=== PATIENT | female | born 1940 | race Caucasian/White ===

== ENCOUNTER 2016-06-29 14:21 | Inpatient (IN) | payer MEDICARE, OTHER ==
--- NOTE | ~2016-06-29 | CN ---
Consultation Report [place] [id number] [place]. [address] NAME: ERICK CAMPOS : [birth year] STATUS : ADM IN [facility]#: [id number] AGE: 75 ADM/REG DATE : 06/29/16 MR#: [id number] REPORT SERV DATE: 06/30/16 DICTATED BY: ROB PARKER DATE: 06/30/16 REPORT STATUS : Draft TRANSCRIBED BY: MODL DATE: 06/30/16 GI CONSULTATION DATE OF CONSULTATION: 06/30/2016 HISTORY OF PRESENT ILLNESS: The patient is a 75-year-old white female, on whom we are consulted for GI bleed. The patient has seen Dr. Fink in the past for question irritable bowel syndrome versus colitis, has had been many years since she had a colonoscopy. The patient had sudden onset yesterday of severe cramping, diffusely in the abdomen more so in the left lower quadrant, and then hematochezia. She has noticed a change recently in her bowel habits. She previously had a history of chronic diarrhea, for which she took Imodium, but has been noticing change in her bowel habits with more constipation over the last several months to years. PAST MEDICAL HISTORY: 1. Irritable bowel syndrome with diarrhea, question colitis. 2. Gastroparesis. 3. History of hypertension. 4. Depression. 5. Hypothyroidism. MEDICATIONS: Reviewed. Of note, she does take Remeron and evidently omeprazole. ALLERGIES: SULFA. REVIEW OF SYSTEMS: The patient denies any fever, chills. She did have nausea on one occasion. PHYSICAL EXAMINATION: GENERAL: The patient is a pleasant white female, in no acute distress. LUNGS: Clear. CARDIOVASCULAR: Regular rhythm. ABDOMEN: Soft. There is mild tenderness in the left lower quadrant. No peritoneal signs appreciated. LABORATORY DATA: Shows CBC on admission with a white count of 18,600, hemoglobin 14.9, and hematocrit 42.7. Normal liver enzymes. CT scan showed thickening of the left side of her colon from the transverse to descending with inflammation. She does have sigmoid diverticulosis. ASSESSMENT: 1. The patient with hematochezia and abdominal pain, suspect ischemic colitis as a cause of this, less likely to be an inflammatory bowel disease. With her recent change in Consultation Report [place] [address] [place]. [address] NAME: ERICK CAMPOS : 39 STATUS : ADM IN PAT#: [id number] AGE: 75 ADM/REG DATE : 06/29/16 MR#: [id number] REPORT SERV DATE: 06/30/16 DICTATED BY: ROB PARKER DATE: 06/30/16 REPORT STATUS : Draft TRANSCRIBED BY: MODL DATE: 06/30/16 bowel habits, certainly need to exclude any sort of colonic neoplasm. 2. History of irritable bowel syndrome and gastroparesis. 3. Other medical problems as above. RECOMMENDATIONS: 1. Continue IV antibiotics. 2. Ultrasound of mesenteric vessels is pending. 3. We will schedule the patient for colonoscopy in the morning. ALBINO/CHARLES Rob Parker M.D. / [id number] CC: Nieves Mckinnon M.D.
--- NOTE | ~2016-06-29 | EGD ---
EGD REPORT [facility] [address] [address] NAME: PUSHPA CAMPOS : [birth year] STATUS : ADM IN PAT#: [id number] AGE: 75 ADM/REG DATE : 06/29/16 MR#: [id number] REPORT SERV DATE: 07/01/16 DICTATED BY: ALLI VALDEZ DATE: 07/01/16 REPORT STATUS : Draft TRANSCRIBED BY: [facility] DATE: 07/01/16 Endoscopy Center Patient Name: Pushpa Campos Date of : 1940 Attending MD: ALLI VALDEZ MD Procedure Date No Time: 07/01/2016 Procedure: Colonoscopy Indications: Hematochezia Referring MD: CHARISMA PANDEY Medicines: Monitored Anesthesia Care Complications: No immediate complications. Estimated blood loss: Minimal. Procedure: Pre-Anesthesia Assessment: - ASA Grade Assessment: II - A patient with mild systemic disease. After I obtained informed consent, the scope was passed under direct vision. Throughout the procedure, the patient's blood pressure, pulse, and oxygen saturations were monitored continuously. The CF [id number] was introduced through the anus with the intention of advancing to the ileum. The scope was advanced to the sigmoid colon before the procedure was aborted. Medications were given. The colonoscopy was performed without difficulty. The patient tolerated the procedure well. The quality of the bowel preparation was good. Findings: The perianal and digital rectal examinations were normal. Pertinent negatives include normal sphincter tone and no palpable rectal lesions. Diffuse severe inflammation characterized by congestion (edema), erythema and confluent ulcerations was found in the sigmoid colon. Biopsies were taken with a cold forceps for histology. Estimated blood loss was minimal. The exam was otherwise without abnormality on direct and retroflexion views. Impression: - Diffuse severe inflammation was found in the sigmoid colon, rule out inflammatory bowel disease. Biopsied. - Examination stopped at sigmoid colon due to severity of inflammation. - The examination was otherwise normal on direct and retroflexion views. Recommendation: - Return patient to hospital amor for ongoing care. - Await pathology results. EGD REPORT [facility] [address] [address] NAME: PUSHPA CAMPOS : [birth year] STATUS : ADM IN [facility]#: [id number] AGE: 75 ADM/REG DATE : 06/29/16 MR#: [id number] REPORT SERV DATE: 07/01/16 DICTATED BY: ALLI VALDEZ DATE: 07/01/16 REPORT STATUS : Draft TRANSCRIBED BY: IOCS DATE: 07/01/16 - Clear liquid diet. - Follow up with GI (Danae) after discharge Procedure Code(s): --- Professional --- 08455, 52, Colonoscopy, flexible, proximal to splenic flexure; with biopsy, single or multiple Diagnosis Code(s): --- Professional --- K52.9, Noninfective gastroenteritis and colitis, unspecified K92.1, Melena CPT copyright 2013 [employer] [place] [employer]. All rights reserved. The codes documented in this report are preliminary and upon form worker review may be revised to meet current compliance requirements. Alli Valdez MD ALLI VALDEZ MD 07/01/2016 7:59 AM This report has been signed electronically. Number of Addenda: 0 Note Initiated On: 07/01/2016 7:12 AM Scope Withdrawal Time 0 hours 0 minutes 0 seconds [address] [address]
--- NOTE | ~2016-06-29 | DS ---
Discharge Summary [facility] [address] [place]. [address] NAME: PUSHPA CAMPOS : 39 STATUS : DIS IN PAT#: [id number] AGE: 75 ADM/REG DATE : 06/29/16 MR#: [id number] REPORT SERV DATE: 07/03/16 DICTATED BY: CONSTANTIN CUTLER DATE: 07/02/16 REPORT STATUS : Draft TRANSCRIBED BY: MODL DATE: 07/02/16 ADMISSION DATE: 06/29/2016 DISCHARGE DATE: 07/02/2016 CONDITION ON DISCHARGE: Stable. DISPOSITION: Discharged to home. DIAGNOSES ON DISCHARGE: 1. Acute diffuse colitis, ischemic versus infectious in origin, however, less likely ischemic because the patient had mesenteric ultrasound that showed no stenosis of either superior mesenteric artery or inferior mesenteric artery; hence, this could be either nonspecific colitis versus infectious colitis. 2. Rectal bleed - resolved. 3. History of irritable bowel syndrome, stable. 4. History of gastroparesis, stable. 5. Hypertension - stable. 6. Hypothyroidism - stable. 7. Depression, stable with medications. CONSULTATIONS OBTAINED DURING HOSPITALIZATION: Include GI consultation by Dr. Rob Valenzuela. BRIEF HOSPITAL COURSE: Ms Pushpa Campos is a 75-year-old female patient who was admitted with signs and symptoms as outlined in history and physical exam. Essentially, she came in with crampy abdominal pain and multiple bouts of loose stool mixed with blood. CT scan showed diffuse colitis, and hence, the patient was admitted for IV antibiotics and symptomatic relief. The patient was kept on clear liquids only and then diet was advanced slowly. The patient improved with antibiotics. Her crampy abdominal pain completely resolved. She is ambulating. She has had bowel movements with no bleeding in it. She is tolerating p.o. solids, and hence, she is being discharged home in stable condition with followup with PCP in the next one to two weeks and GI within the next three to four weeks. The antibiotics that she will be sent home on include the following: Levofloxacin 500 mg once a day for seven more days and Flagyl 500 mg p.o. t.i.d. for seven more days. The patient already has a probiotic capsules that she takes at home. Her home medications that will be stopped include lisinopril/HCT at this time. This is because her blood pressures have been running normal while in the hospital and also in addition to that, her acute kidney injury when she came in with, her creatinine was 1.5. This has resolved now and creatinine is down to 1. Hence, I have advised her to get her blood pressure checked in the next one to two weeks with her primary care physician, and then make decision as to whether to resume the blood pressure pill lisinopril/HCT at this time. The patient also will resume aspirin in only a week from now. Other than that, she will resume the rest of her medications that include levothyroxine 50 mcg once a day, Remeron 45 mg once a day, zolpidem 5 mg p.o. at bedtime, Zofran 4 mg p.o. t.i.d. p.r.n., tramadol 50 mg p.o. once a day p.r.n., and other vitamins and minerals like niacin, probiotics, and multivitamins. The patient will also resume Zyrtec 10 mg once a day. The most recent labs I have on this patient Discharge Summary [address] [address] NAME: PUSHPA CAMPOS : 38 STATUS : DIS IN PAT#: [id number] AGE: 75 ADM/REG DATE : 06/29/16 MR#: [id number] REPORT SERV DATE: 07/03/16 DICTATED BY: CONSTANTIN CUTLER DATE: 07/02/16 REPORT STATUS : Draft TRANSCRIBED BY: MODL DATE: 07/02/16 include a CBC that is completely normal with hemoglobin of 11 and hematocrit of 32.6. WBC count is 8.7. Electrolyte profile is completely normal and her BUN is 5 and creatinine is 1.01 today. Hence, the patient is being discharged home in stable condition and I have spent about 40 to 45 minutes in coordinating discharge care of this patient including face- to-face encounter, advice, and also summarizing this discharge. THOM/CHARLES Constantin Cutler M.D. / [id number] CC: Ian Agee SUSAN R.
--- NOTE | ~2016-06-29 | HP ---
History And Physical [place] [id number] [place]. [address] NAME: ERICK CAMPOS : 38 STATUS : ADM IN [facility]#: [id number] AGE: 75 ADM/REG DATE : 06/29/16 MR#: [id number] REPORT SERV DATE: 06/29/16 DICTATED BY: CONSTANTIN CUTLER DATE: 06/29/16 REPORT STATUS : Draft TRANSCRIBED BY: MODL DATE: 06/29/16 DATE OF ADMISSION: 06/29/2016 Mrs. Campos is a 75-year-old female patient, who came into the ER this morning because she noticed that she had bright red blood that she was passing in her stool last night. The patient states that all her symptoms began yesterday, and she may have had at least two or three bouts of bowel movements with linda blood in it. The patient also states that she had nausea and vomiting one time yesterday. She states that she just threw up the food that she had eaten, and there was no blood in the vomitus. The patient said that she was so scared that she had passed blood in the stool that she wanted to come to the ER yesterday itself, but she postponed it until today, and she came now. The patient also describes crampy abdominal pain every time she had a bowel movement with the blood in it. HISTORY OF PRESENTING COMPLAINT: The patient states that she has had colon problems for several years, and she has been diagnosed with irritable bowel syndrome and just a sensitive colon for several years now. 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 But the patient states that she has never had bleeding in her bowel movements like the way she did yesterday. REVIEW OF SYSTEMS: Negative for headaches, blurry vision, trouble swallowing, chest pain, shortness of breath, fever, dysuria, or hematuria. Negative for joint pains. PAST MEDICAL HISTORY: Significant for hypertension, hypothyroidism, depression, insomnia, "irritable colon." SOCIAL HISTORY: The patient does not smoke or drink any alcohol. She denies any illegal drug use. The patient is and lives alone and her children live out of town. FAMILY HISTORY: Positive for nephritis in father. Other than that, there are no colon problems that run in the family according to the patient. ALLERGIES: INCLUDE ALLERGY TO SULFA. HOME MEDICATIONS: Include levothyroxine 50 mcg once a day, lisinopril/HCT one tablet once a day, tramadol 50 mg p.o. daily p.r.n., Remeron 45 mg p.o. at bedtime, Ambien 5 mg p.o. at bedtime, niacin one tablet every day, aspirin 81 mg once a day, probiotic one capsule once a day, multivitamins one tablet once a day, cetirizine 10 mg once a day, and Zofran 4 mg p.o. t.i.d. p.r.n. for nausea. PHYSICAL EXAMINATION: GENERAL: On examination, the patient is alert, oriented, and able to give her history herself. Skin and mucous membranes appear moist. VITAL SIGNS: Show that blood pressure is 111/56, temperature is afebrile, pulse is 103 per minute, respirations 16 per minute, the O2 saturations 98% on room air. History And Physical [address] [address] NAME: ERICK CAMPOS : 38 STATUS : ADM IN [facility]#: [id number] AGE: 75 ADM/REG DATE : 06/29/16 MR#: [id number] REPORT SERV DATE: 06/29/16 DICTATED BY: CONSTANTIN CUTLER DATE: 06/29/16 REPORT STATUS : Draft TRANSCRIBED BY: CHARLES DATE: 06/29/16 HEENT: Unremarkable. There is no facial droop or facial asymmetry. NECK: There is no JVD or thyromegaly. CARDIOVASCULAR SYSTEM: S1, S2 appreciated. Sinus rhythm. No murmurs, rubs, or gallops noted. Tachycardia noted. RESPIRATORY SYSTEM: Clear lungs. No rales or rhonchi noted. ABDOMEN: Soft. There is mild diffuse tenderness, but no guarding or rigidity noted in the belly area. Bowel sounds are appreciated. No organomegaly or hepatosplenomegaly noted. EXTREMITIES: There is no edema. Pedal pulses are well felt. NEUROLOGICAL EXAM: Normal. MUSCULOSKELETAL: Normal. PSYCHIATRIC EXAM: Positive for depression for which she takes medications and controlled well with it. LABORATORY DATA: The labs that I have on this patient include WBC count of 18.6, hemoglobin 14.9, hematocrit 42.7, platelet count of 372. INR is 0.9. CMP shows normal electrolytes, BUN 13, creatinine 1.5. Normal LFTs. CT scan of the abdomen and pelvis shows that the patient has: 1. Diffuse thickening of the wall of the left side of the transverse colon and descending colon consistent with inflammation of the adjacent mesentery. Findings consistent with an infectious/inflammatory colitis. There is no bowel obstruction. The patient does have multiple sigmoid diverticula. ASSESSMENT: Acute colitis, infectious most likely. It could be ischemic colitis too. However, probably more inflammatory/infectious in origin, given the tachycardia, increased WBC count, this classifies the patient under sepsis too. We will admit the patient for this and start her on IV fluids and intravenous antibiotics namely Levaquin and Flagyl. We will also go ahead and keep the patient only on clear liquids for now before advancing her to full liquids and then maybe solids in the later day or two. We will obtain GI consult from Dr. Turner. Rest of her medical problems also include leukocytosis probably secondary to colitis. Acute kidney injury probably secondary to mild dehydration, which should be corrected with IV LR that I am starting on her. Her other chronic medical problems remained stable, and I will keep her on her home medications including her thyroid medication, medication for insomnia and depression. However, we will hold aspirin given the history of gastrointestinal bleed. Also, we will go ahead and hold her blood pressure medicine given the acute kidney injury. We will follow the patient. THOM/CHARLES History And Physical [address] [address] NAME: ERICK CAMPOS : 39 STATUS : ADM IN PAT#: [id number] AGE: 75 ADM/REG DATE : 06/29/16 MR#: [id number] REPORT SERV DATE: 06/29/16 DICTATED BY: CONSTANTIN CUTLER DATE: 06/29/16 REPORT STATUS : Draft TRANSCRIBED BY: CHARLES DATE: 06/29/16 Constantin Cutler M.D. / [id number] CC: Ian Agee
[2016-06-29 11:15] LABS: BASOPHILS 0.2 %; BASOPHILS ABSOLUTE 0.04 10/3/uL (0.0-0.16); EOSINOPHILS 0.1 %; EOSINOPHILS ABSOLUTE 0.01 10/3/uL (0.0-0.53); HEMATOCRIT 42.7 % (36.0-48.0); HEMOGLOBIN 14.9 g/dL (12.0-16.0); IMMATURE GRANULOCYTES 0.4 %; IMMATURE GRANULOCYTES ABSOLUTE 0.07 10/3/uL (0.0-0.11); LYMPHOCYTES 7.3 %; LYMPHOCYTES ABSOLUTE 1.35 10/3/uL (0.67-4.30); MEAN CORPUS HGB CONC 34.9 g/dL (32.0-36.0); MEAN CORPUSCULAR HEMOGLOB 30.8 pg (26.0-34.0); MEAN CORPUSCULAR VOLUME 88.4 fL (80-100); MEAN PLATELET VOLUME 11.1 fL (9.2-13.0); MONOCYTES 4.2 %; MONOCYTES ABSOLUTE 0.79 10/3/uL (0.21-1.20); NEUTROPHILS 87.8 %; NEUTROPHILS ABSOLUTE 16.36 10/3/uL (2.02-8.40); PLATELET COUNT 372 10/3/uL (150-400); RBC DISTRIBUTION WIDTH 13.5 % (12.0-16.0); RED CELL COUNT 4.83 10/6/uL (4.0-5.6)
[2016-06-29 11:16] LABS: MANUAL DIFF NO %; WHITE BLOOD CELLS 18.6 10/3/uL (4.5-10.5)
[2016-06-29 11:22] LABS: INTERNATIONAL NORMAL RATI 0.9 UNITS (-); PARTIAL THROMBO TIME 23.7 SEC (22.5-37.2); PROTIME (NOT ORD) 12.3 SEC (12.0-14.5)
[2016-06-29 11:29] LABS: ALBUMIN 3.9 G/DL (3.5-5.0); BUN (BLOOD UREA NITROGEN) 13 MG/DL (6-23); CALCIUM, SERUM 9.2 MG/DL (8.5-10.4); CHLORIDE, SERUM 99 MMOL/L (96-112); CO2 (CARBON DIOXIDE) 29 MMOL/L (24-34); CREATININE 1.53 MG/DL (0.55-1.02); GFR AFRICAN AMERICAN 38 ML/MIN (>=60); GFR NON AFRICAN AMERICAN 33 ML/MIN (>=60); SGOT(AST) 15 U/L (5-40); SGPT(ALT) 18 U/L (5-65); SODIUM, SERUM 140 MMOL/L (135-148); TOTAL PROTEIN 7.4 G/DL (6.0-8.5)
[2016-06-29 11:30] LABS: A/G RATIO 1.1 (0.7-1.9); ALKALINE PHOSPHATASE 103 U/L (45-117); GLOBULIN 3.5 G/DL (2.5-4.1); GLUCOSE, SERUM 145 MG/DL (60-99); TOTAL BILIRUBIN 0.9 MG/DL (0-1.2)
[~2016-06-29 14:21] MED LIST: ACET500CAP PO; ASAB PO; ATIVAN2 MG PO; BENTYL10 PO; BIOCELL COLLAGEN PO; FLUCON150 PO; LEVOTHROID75 MCG PO; LEVOTHYROXIN50 MCG PO; MULTIPLE VIT PO; PRILO PO; PROBIOTIC PO; SLO-NIACIN500 MG PO; ULTRAM50 PO; ZANTAC 150 PO; ZESTORETIC PO
[2016-06-29] MEDS ORDERED: ZOFRAN4 PO (16:27)
[2016-06-29] MEDS ORDERED: ZESTORETIC PO (16:33)
[2016-06-29] MEDS ORDERED: SYN.05 PO (16:33)
[2016-06-29] MEDS ORDERED: AMB5 PO ×2 (16:34→16:35)
[2016-06-29] MEDS ORDERED: REMERON45 MG PO (16:34)
[2016-06-29] MEDS ORDERED: ULTRAM50 PO (16:34)
[2016-06-29] MEDS ORDERED: NIACIN PO (16:35)
[2016-06-29] MEDS ORDERED: PROBIOTIC PO (16:35)
[2016-06-29] MEDS ORDERED: ASAB PO (16:35)
[2016-06-29] MEDS ORDERED: MULTIVIT/MIN PO (16:36)
[2016-06-29] MEDS ORDERED: ZYRTEC ALLGY10 MG PO (16:37)
[2016-06-29] MEDS ORDERED: REFRES1 (16:37)
[2016-06-29 17:44] LABS: WBC (NOT ORDERED) (RFLEX) 0 (0-5)
[2016-06-29 17:54] LABS: ASCORBIC ACID (UR NOT ORDER) 40 (NEG); BILIRUBIN, URINE NEGATIVE (NEG); KETONE, URINE TRACE MG/DL (NEG); LEUKOCYTE ESTERASE(NOT OR NEG (NEG)
[2016-06-29 19:42] LABS: PROCALCITONIN <0.05 ng/mL (<0.5)
[2016-06-30 06:36] LABS: BASOPHILS 0.1 %; BASOPHILS ABSOLUTE 0.02 10/3/uL (0.0-0.16); EOSINOPHILS 0.7 %; HEMOGLOBIN 12.9 g/dL (12.0-16.0); IMMATURE GRANULOCYTES 0.3 %; IMMATURE GRANULOCYTES ABSOLUTE 0.04 10/3/uL (0.0-0.11); LYMPHOCYTES 11.4 %; MEAN CORPUS HGB CONC 34.8 g/dL (32.0-36.0); MEAN CORPUSCULAR HEMOGLOB 30.3 pg (26.0-34.0); MEAN CORPUSCULAR VOLUME 87.1 fL (80-100); MEAN PLATELET VOLUME 11.1 fL (9.2-13.0); MONOCYTES 7.3 %; MONOCYTES ABSOLUTE 1.09 10/3/uL (0.21-1.20); NEUTROPHILS 80.2 %; PLATELET COUNT 295 10/3/uL (150-400); RBC DISTRIBUTION WIDTH 13.6 % (12.0-16.0); RED CELL COUNT 4.26 10/6/uL (4.0-5.6); WHITE BLOOD CELLS 14.9 10/3/uL (4.5-10.5)
[2016-06-30 06:37] LABS: CALCIUM, SERUM 8.5 MG/DL (8.5-10.4); CHLORIDE, SERUM 102 MMOL/L (96-112); CO2 (CARBON DIOXIDE) 27 MMOL/L (24-34); HEMATOCRIT 37.1 % (36.0-48.0); MANUAL DIFF NO %; POTASSIUM, SERUM 3.7 MMOL/L (3.5-5.3); SGOT(AST) 12 U/L (5-40); SGPT(ALT) 17 U/L (5-65); SODIUM, SERUM 139 MMOL/L (135-148); TOTAL BILIRUBIN 1.1 MG/DL (0-1.2); TOTAL PROTEIN 6.1 G/DL (6.0-8.5)
[2016-06-30 06:38] LABS: ALKALINE PHOSPHATASE 76 U/L (45-117); BUN (BLOOD UREA NITROGEN) 9 MG/DL (6-23); GFR AFRICAN AMERICAN 63 ML/MIN (>=60); GFR NON AFRICAN AMERICAN 55 ML/MIN (>=60); GLOBULIN 3.1 G/DL (2.5-4.1); GLUCOSE, SERUM 107 MG/DL (60-99)
[2016-07-01 06:54] LABS: BASOPHILS 0.3 %; BASOPHILS ABSOLUTE 0.04 10/3/uL (0.0-0.16); EOSINOPHILS ABSOLUTE 0.27 10/3/uL (0.0-0.53); HEMATOCRIT 33.8 % (36.0-48.0); HEMOGLOBIN 11.6 g/dL (12.0-16.0); IMMATURE GRANULOCYTES 0.3 %; IMMATURE GRANULOCYTES ABSOLUTE 0.04 10/3/uL (0.0-0.11); LYMPHOCYTES 16.5 %; LYMPHOCYTES ABSOLUTE 2.18 10/3/uL (0.67-4.30); MEAN CORPUS HGB CONC 34.3 g/dL (32.0-36.0); MEAN CORPUSCULAR HEMOGLOB 30.1 pg (26.0-34.0); MEAN CORPUSCULAR VOLUME 87.8 fL (80-100); MEAN PLATELET VOLUME 11.3 fL (9.2-13.0); MONOCYTES ABSOLUTE 0.92 10/3/uL (0.21-1.20); NEUTROPHILS 73.9 %; NEUTROPHILS ABSOLUTE 9.75 10/3/uL (2.02-8.40); PLATELET COUNT 279 10/3/uL (150-400); RBC DISTRIBUTION WIDTH 13.7 % (12.0-16.0); RED CELL COUNT 3.85 10/6/uL (4.0-5.6); WHITE BLOOD CELLS 13.2 10/3/uL (4.5-10.5)
[2016-07-01 06:57] LABS: MANUAL DIFF NO %
[2016-07-01 07:06] LABS: BUN (BLOOD UREA NITROGEN) 8 MG/DL (6-23); CALCIUM, SERUM 8.3 MG/DL (8.5-10.4); CHLORIDE, SERUM 104 MMOL/L (96-112); CO2 (CARBON DIOXIDE) 27 MMOL/L (24-34); CREATININE 0.93 MG/DL (0.55-1.02); GFR AFRICAN AMERICAN 69 ML/MIN (>=60); GFR NON AFRICAN AMERICAN 60 ML/MIN (>=60); GLUCOSE, SERUM 97 MG/DL (60-99); POTASSIUM, SERUM 3.5 MMOL/L (3.5-5.3); SODIUM, SERUM 142 MMOL/L (135-148)
[2016-07-02 06:56] LABS: BUN (BLOOD UREA NITROGEN) 5 MG/DL (6-23); CALCIUM, SERUM 8.3 MG/DL (8.5-10.4); CHLORIDE, SERUM 108 MMOL/L (96-112); CO2 (CARBON DIOXIDE) 27 MMOL/L (24-34); CREATININE 1.01 MG/DL (0.55-1.02); GFR AFRICAN AMERICAN 63 ML/MIN (>=60); GFR NON AFRICAN AMERICAN 54 ML/MIN (>=60); GLUCOSE, SERUM 99 MG/DL (60-99); POTASSIUM, SERUM 3.7 MMOL/L (3.5-5.3); SODIUM, SERUM 143 MMOL/L (135-148)
[2016-07-02 07:32] LABS: BASOPHILS 0.6 %; BASOPHILS ABSOLUTE 0.05 10/3/uL (0.0-0.16); EOSINOPHILS 7.8 %; EOSINOPHILS ABSOLUTE 0.68 10/3/uL (0.0-0.53); HEMATOCRIT 32.6 % (36.0-48.0); IMMATURE GRANULOCYTES 0.1 %; IMMATURE GRANULOCYTES ABSOLUTE 0.01 10/3/uL (0.0-0.11); LYMPHOCYTES 23.8 %; LYMPHOCYTES ABSOLUTE 2.07 10/3/uL (0.67-4.30); MANUAL DIFF NO %; MEAN CORPUS HGB CONC 33.7 g/dL (32.0-36.0); MEAN CORPUSCULAR HEMOGLOB 29.6 pg (26.0-34.0); MEAN CORPUSCULAR VOLUME 87.6 fL (80-100); MEAN PLATELET VOLUME 11.2 fL (9.2-13.0); NEUTROPHILS 59.7 %; NEUTROPHILS ABSOLUTE 5.19 10/3/uL (2.02-8.40); PLATELET COUNT 276 10/3/uL (150-400); RED CELL COUNT 3.72 10/6/uL (4.0-5.6); WHITE BLOOD CELLS 8.7 10/3/uL (4.5-10.5)
[2016-07-02] MEDS ORDERED: FLAG500TAB PO (12:06)
[2016-07-02] MEDS ORDERED: LEVAQUIN5T PO (12:06)
== END 2016-07-02 14:05 | disposition home or self-care (01) | DRG 394 ==
LOC: ER 14:21 → 4SO 16:32
PROVIDERS: Emergency Medicine; Internal Medicine Gastroenterology
PROC: 0DBN8ZX Excision of Sigmoid Colon, Via Natural or Artificial Opening Endoscopic, Diagnostic (ICD-10-PCS; principal; 2016-07-01 07:30)
DX: K55.9 Vascular disorder of intestine, unspecified (principal); K63.3 Ulcer of intestine; N17.9 Acute kidney failure, unspecified; E86.0 Dehydration; K31.84 Gastroparesis; I10 Essential (primary) hypertension; K58.9 Irritable bowel syndrome, unspecified; E03.9 Hypothyroidism, unspecified; F32.9 Major depressive disorder, single episode, unspecified; G47.00 Insomnia, unspecified; K57.30 Diverticulosis of large intestine without perforation or abscess without bleeding; Z88.2 Allergy status to sulfonamides
CPT/HCPCS: 36415; 74176; 80048; 80053; 81001; 83605; 84145; 85025; 85610; 85730; 86850; 86900; 86901; 87040; 88305; 93005; 93975; 99285; A9270-GY; J1956; J2405